=== PATIENT | female | born 1975 | race Caucasian/White ===

== ENCOUNTER 2018-09-27 14:58 | Emergency (ER) | payer MEDICAID, OTHER ==
[~2018-09-27] VITALS: Ht 160 cm; Wt 108.0 kg
[~2018-09-27 14:58] MED LIST: PREN1TAB49
[2018-09-27 15:02] VITALS: BP 155/68; PULSE 90; RESP 16; Ht 160 cm; Wt 108.0 kg
--- NOTE | 2018-09-27 15:15 | ERD ---
ER Documentation Chief Complaint Chief Complaint pt is bib self with c/o cough and sore throat HPI 43-year-old female, with history of asthma, presents the emergency department, complaining of 2 weeks with worsening of dry cough, associated with subjective fever and general malaise. The patient has been using her pro-air with temporary relief of her symptoms. Otherwise, the patient denies chest pain, no severe shortness of breath, no history of recent traveling. ROS All systems reviewed and are negative except as per history of present illness. Medications Home Meds Active Scripts Prednisone* (Prednisone*) 20 Mg Tab, 40 MG PO DAILY for 5 Days, TAB Prov:JOE MOORE MD 09/27/18 Albuterol Sulfate* (Proair HFA*) 8.5 Gm Hfa.aer.ad, 2 PUFF INH Q4H PRN for WHEEZING AND SOB, #1 INHALER Prov:JOE MOORE MD 09/27/18 Amoxicillin* (Amoxicillin*) 500 Mg Cap, 500 MG PO TID for 7 Days, CAP Prov:JOE MOORE MD 09/27/18 Albuterol Sulfate* (Proair HFA*) 8.5 Gm Hfa.aer.ad, 2 PUFF INH Q4H PRN for WHEEZING AND SOB, #1 INHALER Prov:JOE MOORE MD 09/27/18 Reported Medications Vits W-Ca,Fe,Fa(<1MG) () 1 Tab Tablet 05/20/10 Allergies Allergies: Coded Allergies: No Known Allergy (Verified Allergy, Unknown, 04/26/10) PMhx/Soc Medical and Surgical Hx: pt denies Surgical Hx Hx Respiratory Disorders: Yes (Asthma) FmHx Family History: diabetes Physical Exam Vitals Vital Signs Date Temp Pulse Resp B/P (MAP) Pulse Ox O2 O2 Flow FiO2 Time Delivery Rate 09/27/18 98.3 90 16 155/68 99 15:02 (97) Physical Exam Const: No acute distress Head: Atraumatic Eyes: Normal Conjunctiva ENT: Erythematous oropharynx, normal External Ears. Neck: Full range of motion. No meningismus. Resp: Clear to auscultation bilaterally Cardio: Regular rate and rhythm, no murmurs Abd: Soft, non tender, non distended. Normal bowel sounds Skin: No petechiae or rashes Back: No midline or flank tenderness Ext: No cyanosis, or edema Neur: Awake and alert Psych: Normal Mood and Affect Procedures/MDM At the time of discharge, vital signs stable, no respiratory distress. Differential diagnosis include but not limited to: Respiratory infection bacterial/viral/fungal. Asthma/COPD, pneumonitis, allergies, GERD. Less likely foreign body aspiration, cardiac related, aspiration pneumonia, malignancy. Physical examination and clinical presentation consistent most likely with asthma without bronchospasm with early superimposed bacterial infection. During the ED course the patient remained stable. Clinical impression discussed with the patient who agrees with management. The patient is stable to be treated outpatient and will be discharged home. Some side effects of prescribed medications (headache, rash, nausea, vomiting, diarrhea, drowsiness, habituation, bleeding, hypertension, interactions with other medications) were reviewed. The patient was instructed to follow up with the primary care provider in the next 48h. If symptoms persist, worsen or new symptoms develop, then patient should return to the ED immediately. Disclaimer: Inadvertent spelling and grammatical errors are likely due to EHR/dictation software use and do not reflect on the overall quality of patient care. Also, please note that the electronic time recorded on this note does not necessarily reflect the actual time of the patient encounter. Departure Diagnosis: Primary Impression: Cough Additional Impression: Mild intermittent asthma Condition: Stable Additional Instructions: Thank you very much for allowing us to participate in your care. Your health and safety is our top priority at [facility]. The evaluation in the emergency department has been done to rule out an acute emergency. Chronic, afq-[id number] conditions may have not been evaluated; therefore, you need to follow up with a primary care provider in the next 48h. If symptoms persist, worsen or new symptoms develop, then patient should return to the ED immediately. Call your primary care doctor TOMORROW for an appointment during the next 2-4 days and bring all the information provided. Have prescriptions filled and follow precisely the directions on the label. If the symptoms get worse and your provider is unavailable, return to the Emergency Department immediately. JOE MOORE MD Sep 27, 2018 15:15
[2018-09-27] MEDS ORDERED: ALBU8.5H8 INH ×2 (15:16→15:21)
[2018-09-27] MEDS ORDERED: PRED20TA PO (15:21)
[2018-09-27] MEDS ORDERED: AMOX500C2 PO (15:21)
== END 2018-09-27 15:22 | disposition home or self-care (01) ==
LOC: E/R 14:58
DX: J45.20 Mild intermittent asthma, uncomplicated (principal)
CPT/HCPCS: 99283